=== PATIENT | male | born 1975 | race Caucasian/White ===

== ENCOUNTER 2020-11-21 20:49 | Emergency (ER) | payer OTHER ==
[~2020-11-21] VITALS: Ht 172.7 cm; Wt 86.2 kg
[~2020-11-21 20:49] MED LIST: NORCO 5-325 TA1 EACH PO
[2020-11-21 21:03] VITALS: BP 134/94
[2020-11-21] MEDS ORDERED: CLINDAMYCIN PO (21:11)
[2020-11-21] MEDS ORDERED: CEPHALEXIN500 MG PO (21:44)
== END 2020-11-21 22:00 | disposition home or self-care (01) ==
LOC: ER 20:49
DX: L03.114 Cellulitis of left upper limb (principal); F17.200 Nicotine dependence, unspecified, uncomplicated; Z98.890 Other specified postprocedural states